=== PATIENT | male | born 1980 | race Hispanic/Latino ===

== ENCOUNTER 2021-02-28 11:55 | Outpatient (AMBR) | payer MEDICARE, MEDICAID, SELFPAY ==
--- NOTE | 2021-02-13 13:51 | PTNOTE_ITS ---
PT OP Initial Eval Patient Information Visit Reasons: post op right ankle Medical Diagnosis: S82.891D Treatment Dx #1: Right Ankle Mobility Deficits Treatment Dx #2: Abnormal Gait Start of Care: 02/13/21 Date of Onset: 01/01/21 Initial Assessment Subjective Pt is a 40 y/o male s/p right ankle ORIF and deltoid ligament reconstruction 01/01/21 after ankle injury. Pt still has a lot pain (7/10) with all activities and currently is non-weight bearing. Pt has limitation with walking, standing, chores, self care, balance, work duties, and performing recreational activities. Objective Right Ankle AROM PF to DF: -42 deg to -38 deg Inversion and Eversion: unable Right Ankle PROM PF to DF: -42 deg to 35 deg Inversion: 8 deg Eversion: 5 deg Right Ankle MMTs: trace Right Hip MMTs Glute Med: 3-/5 Glute Max: 3-/5 SLS: unable Assessment Pt demonstrate right ankle mobility and strength deficits s/p ankle surgery leading to decline function. Pt will benefit from physical therapy to increase ROM, strength, and work on ankle stability Short Term and Network Architect Goals 1) Increase right ankle AROM WFL in 12 wks to be able to ambulate without AD 2) Increase right ankle MMTs grossly to 3+/5 in 12 wks to be able to perform self care activities 3) Decrease ankle pain to 2/10 in 12 wks to be able to perform chores 4) Increase hip MMTs grossly to 3+/5 in 12 wks to be able to perform work duties 5) Increase SLS to 20 sec in 12 wks to be able to negotiate uneven surfaces 6) Indep with HEP Treatment Plan 1) Manual Therapy 2) Therapeutic Activities 3) Therapeutic Exercises 4) Modalities (ice, heat) 5) Balance Training 6) Gait Training Frequency and Duration 2 x wk for 12 wks Certification Dates: 02/13/21 to 05/15/21 Office Procedures PT Procedures PT Date of Service: 02/13/21 OP PT Eval Mod Complex 30 minutes: Yes
--- NOTE | 2021-02-17 14:41 | PTNOTE_ITS ---
PT Outpatient Daily Note Date of Service: 02/17/21 OP Daily Note Visit Reasons: post op right ankle Outpatient Physical Therapy Treatment Date: 02/17/21 Subjective: Jamel traore helps the swelling in his ankle. Pt notice more ankle ROM in the past days Objective: Please see flow chart for list of ther ex performed Assessment: tolerate exercises with minimal pain; improved ankle AROM in DF and PF after therapy session. post ice help decrease swelling in the ankle Plan: Continue with PT Length of Time (minutes) of Treatment: 30 Minutes Office Procedures PT Procedures PT Date of Service: 02/13/21 OP PT Eval Mod Complex 30 minutes: Yes PT Procedures PT Date of Service: 02/17/21 Therapeutic Exercise 15 minutes: Yes Manual Trouble Tracer 15 minutes: Yes
--- NOTE | 2021-02-20 13:40 | PT.ODAYNRPT ---
PT Outpatient Daily Note Date of Service: 02/20/21 OP Daily Note Visit Reasons: post op right ankle Outpatient Physical Therapy Treatment Date: 02/20/21 Subjective: Pt's ankle is feeling better and notice more movement, however, without his boot he notice more ankle swelling. Objective: Please see flow chart for list of ther ex performed Assessment: tolerate exercises with minimal pain; continues to improve with ankle ROM in all plane. decrease stiffness noted with all toes today Plan: Continue with PT Length of Time (minutes) of Treatment: 30 Minutes Office Procedures PT Procedures PT Date of Service: 02/13/21 OP PT Eval Mod Complex 30 minutes: Yes PT Procedures PT Date of Service: 02/17/21 Therapeutic Exercise 15 minutes: Yes Manual Senior Net Architect 15 minutes: Yes PT Procedures PT Date of Service: 02/20/21 Therapeutic Exercise 30 minutes: Yes
--- NOTE | 2021-02-26 14:32 | PT.ODAYNRPT ---
PT Outpatient Daily Note Date of Service: 02/26/21 OP Daily Note Visit Reasons: post op right ankle Outpatient Physical Therapy Treatment Date: 02/26/21 Subjective: Pt mention that his ankle still swells but it does move a lot better. Objective: Please see flow chart for list of ther ex performed Assessment: tolerate exercises with minimal pain Plan: Continue with PT Length of Time (minutes) of Treatment: 30 Minutes Office Procedures PT Procedures PT Date of Service: 02/13/21 OP PT Eval Mod Complex 30 minutes: Yes PT Procedures PT Date of Service: 02/26/21 Therapeutic Exercise 30 minutes: Yes PT Procedures PT Date of Service: 02/17/21 Therapeutic Exercise 15 minutes: Yes Manual Director Of Assisted Living 15 minutes: Yes PT Procedures PT Date of Service: 02/20/21 Therapeutic Exercise 30 minutes: Yes
--- NOTE | 2021-02-28 11:56 | PT.ODAYNRPT ---
PT Outpatient Daily Note Date of Service: 02/28/21 OP Daily Note Visit Reasons: post op right ankle Outpatient Physical Therapy Treatment Date: 02/28/21 Subjective: Pt mention that his ankle is better. Pt notice he's now able to move his toes pretty well Objective: Please see flow chart for list of ther ex performed Assessment: tolerate exercieses with minimal pain Plan: Continue with PT Length of Time (minutes) of Treatment: 30 Minutes Office Procedures PT Procedures PT Date of Service: 02/13/21 OP PT Eval Mod Complex 30 minutes: Yes PT Procedures PT Date of Service: 02/26/21 Therapeutic Exercise 30 minutes: Yes PT Procedures PT Date of Service: 02/17/21 Therapeutic Exercise 15 minutes: Yes Manual Reverberatory Furnace Operator 15 minutes: Yes PT Procedures PT Date of Service: 02/20/21 Therapeutic Exercise 30 minutes: Yes PT Procedures PT Date of Service: 02/28/21 Therapeutic Exercise 30 minutes: Yes
== END 2021-02-28 23:59 | disposition home or self-care (01) ==
PROVIDERS: PCP Orthopaedic Surgery; Referring Provider Orthopaedic Surgery; Visit Provider Orthopaedic Surgery
DX: S82.891D Other fracture of right lower leg, subsequent encounter for closed fracture with routine healing (principal); M25.561 Pain in right knee; R26.2 Difficulty in walking, not elsewhere classified; X58.XXXD Exposure to other specified factors, subsequent encounter
CPT/HCPCS: 97110; 97140; 97162

== ENCOUNTER 2021-03-27 10:25 | Outpatient (AMBR) | payer MEDICARE, MEDICAID, SELFPAY ==
--- NOTE | 2021-03-05 10:19 | PT.ODAYNRPT ---
PT Outpatient Daily Note Date of Service: 03/05/21 OP Daily Note Visit Reasons: post op right ankle Outpatient Physical Therapy Treatment Date: 03/05/21 Subjective: Pt's ankle is better. Pt stated that he still has good and bad days. Pt notice some swelling in his ankle on days that he is moving around a lot more Objective: Please see flow chart for list of ther ex performed Assessment: tolerate exercises with minimal pain Plan: Continue with PT Length of Time (minutes) of Treatment: 30 Minutes Office Procedures PT Procedures PT Date of Service: 03/05/21 Therapeutic Exercise 30 minutes: Yes
--- NOTE | 2021-03-07 14:35 | PT.ODAYNRPT ---
PT Outpatient Daily Note Date of Service: 03/07/21 OP Daily Note Visit Reasons: post op right ankle Outpatient Physical Therapy Treatment Date: 03/07/21 Subjective: Pt mention that his ankle is better. Pt notice less pain and swelling. Pt also stated that stiffness is less Objective: Please see flow chart for list of ther ex performed Assessment: tolerate exercises with minimal pain; improved big toe ROM Plan: Continue with PT Length of Time (minutes) of Treatment: 30 Minutes Office Procedures PT Procedures PT Date of Service: 03/07/21 Therapeutic Exercise 30 minutes: Yes PT Procedures PT Date of Service: 03/05/21 Therapeutic Exercise 30 minutes: Yes
--- NOTE | 2021-03-11 09:16 | PT.ODS1RPT ---
PT OP Progress/Discharge Note Date of Service: 03/11/21 Progress Note/DC Note Progress Note/Discharge Note: Progress Note Patient Information Visit Reasons: post op right ankle Medical Diagnosis: S82.891 Treatment Dx #1: Right Ankle Mobility Deficits Treatment Dx #2: Right Ankle Weakness Service Continue Service or Discharge: Continue Service Certification Date Certification Dates: 03/11/21 to 06/11/21 Status Subjective: Pt mention that his ankle swells intermittently. It's based on how much activities and movement is done for the day. Pt still has limitation with prolonged standing and walking due to weightbearing restriction. Pt notice that he can now shower, perform light chores, and self care with less limitation. Pt will be seeing his surgeon in a few weeks and wants to return back to work. Objective: Right Ankle AROM DF: 10 deg PF: 40 deg Inversion: 10 deg Eversion: 5 deg Right Ankle MMTs: grossly 2-/5 Right Hip MMTs Glute Med: 3-/5 Glute Max: 3-/5 SLS: unable Assessment: Pt demonstrate improvement with ankle ROM and strength allowing him to start light ADLs, chores, and self care activities with less limitation. Pt's slow progress with functional tasks and mobility relates to weightbearing restriction and continuation use of the cam boot. Pt has not met set goals yet and will continue to benefit from physical therapy to increase ROM, strength, and overall ankle stability; thank you for your referrals. Plan: Continue with PT/POC Office Procedures PT Procedures PT Date of Service: 03/07/21 Therapeutic Exercise 30 minutes: Yes PT Procedures PT Date of Service: 03/05/21 Therapeutic Exercise 30 minutes: Yes PT Procedures PT Date of Service: 03/11/21 Therapeutic Exercise 30 minutes: Yes
--- NOTE | 2021-03-13 09:47 | PT.ODAYNRPT ---
PT Outpatient Daily Note Date of Service: 03/13/21 OP Daily Note Visit Reasons: post op right ankle Outpatient Physical Therapy Treatment Date: 03/13/21 Subjective: Pt's ankle feels better. Pt wants to go swimming but he cant Objective: Please see flow chart for list of ther ex performed Assessment: tolerate exercises with minimal pain Plan: Continue with PT Length of Time (minutes) of Treatment: 30 Minutes Office Procedures PT Procedures PT Date of Service: 03/07/21 Therapeutic Exercise 30 minutes: Yes PT Procedures PT Date of Service: 03/05/21 Therapeutic Exercise 30 minutes: Yes PT Procedures PT Date of Service: 03/11/21 Therapeutic Exercise 30 minutes: Yes PT Procedures PT Date of Service: 03/13/21 Therapeutic Exercise 30 minutes: Yes
--- NOTE | 2021-03-17 12:57 | PT.ODAYNRPT ---
PT Outpatient Daily Note Date of Service: 03/17/21 OP Daily Note Visit Reasons: post op right ankle Outpatient Physical Therapy Treatment Date: 03/17/21 Subjective: Pt mention that his ankle is much better. Pt notice less pain and swelling lately Objective: Please see flow chart for list of ther ex performed Assessment: tolerate exercises with minimal pain Plan: Continue with PT Length of Time (minutes) of Treatment: 30 Minutes Office Procedures PT Procedures PT Date of Service: 03/07/21 Therapeutic Exercise 30 minutes: Yes PT Procedures PT Date of Service: 03/17/21 Therapeutic Exercise 30 minutes: Yes PT Procedures PT Date of Service: 03/05/21 Therapeutic Exercise 30 minutes: Yes PT Procedures PT Date of Service: 03/11/21 Therapeutic Exercise 30 minutes: Yes PT Procedures PT Date of Service: 03/13/21 Therapeutic Exercise 30 minutes: Yes
--- NOTE | 2021-03-19 11:35 | PT.ODAYNRPT ---
PT Outpatient Daily Note Date of Service: 03/19/21 OP Daily Note Visit Reasons: post op right ankle Outpatient Physical Therapy Treatment Date: 03/19/21 Subjective: Pt mention that ankle is better but is concern about returning back to work because he hasnt' bear weight yet Objective: Please see flow chart for list of ther ex performed Assessment: tolerate exercises with minimal pain Plan: Continue with PT Length of Time (minutes) of Treatment: 30 Minutes Office Procedures PT Procedures PT Date of Service: 03/07/21 Therapeutic Exercise 30 minutes: Yes PT Procedures PT Date of Service: 03/17/21 Therapeutic Exercise 30 minutes: Yes PT Procedures PT Date of Service: 03/19/21 Therapeutic Exercise 30 minutes: Yes PT Procedures PT Date of Service: 03/05/21 Therapeutic Exercise 30 minutes: Yes PT Procedures PT Date of Service: 03/11/21 Therapeutic Exercise 30 minutes: Yes PT Procedures PT Date of Service: 03/13/21 Therapeutic Exercise 30 minutes: Yes
--- NOTE | 2021-03-25 11:03 | PT.ODAYNRPT ---
PT Outpatient Daily Note Date of Service: 03/25/21 OP Daily Note Visit Reasons: post op right ankle Outpatient Physical Therapy Treatment Date: 03/25/21 Subjective: Pt mention that his ankle is better. Pt will call MD today when he can return back to work or if he's going to continue short term disability Objective: Please see flow chart for list of ther ex performed Assessment: tolerate exercises with minimal pain Plan: Continue with PT Length of Time (minutes) of Treatment: 30 Minutes Office Procedures PT Procedures PT Date of Service: 03/07/21 Therapeutic Exercise 30 minutes: Yes PT Procedures PT Date of Service: 03/17/21 Therapeutic Exercise 30 minutes: Yes PT Procedures PT Date of Service: 03/19/21 Therapeutic Exercise 30 minutes: Yes PT Procedures PT Date of Service: 03/25/21 Therapeutic Exercise 30 minutes: Yes PT Procedures PT Date of Service: 03/05/21 Therapeutic Exercise 30 minutes: Yes PT Procedures PT Date of Service: 03/11/21 Therapeutic Exercise 30 minutes: Yes PT Procedures PT Date of Service: 03/13/21 Therapeutic Exercise 30 minutes: Yes
--- NOTE | 2021-03-27 11:20 | PT.ODAYNRPT ---
PT Outpatient Daily Note Date of Service: 03/27/21 OP Daily Note Visit Reasons: post op right ankle Outpatient Physical Therapy Treatment Date: 03/27/21 Subjective: Pt mention that his ankle is better. He called the surgeon's office and moved his appt to April 03. Objective: Please see flow chart for list of ther ex performed Assessment: tolerate exercises with minimal pain Plan: Continue with PT Length of Time (minutes) of Treatment: 30 Minutes Office Procedures PT Procedures PT Date of Service: 03/07/21 Therapeutic Exercise 30 minutes: Yes PT Procedures PT Date of Service: 03/17/21 Therapeutic Exercise 30 minutes: Yes PT Procedures PT Date of Service: 03/19/21 Therapeutic Exercise 30 minutes: Yes PT Procedures PT Date of Service: 03/25/21 Therapeutic Exercise 30 minutes: Yes PT Procedures PT Date of Service: 03/27/21 Therapeutic Exercise 30 minutes: Yes PT Procedures PT Date of Service: 03/05/21 Therapeutic Exercise 30 minutes: Yes PT Procedures PT Date of Service: 03/11/21 Therapeutic Exercise 30 minutes: Yes PT Procedures PT Date of Service: 03/13/21 Therapeutic Exercise 30 minutes: Yes
== END 2021-03-31 23:59 | disposition home or self-care (01) ==
PROVIDERS: PCP Orthopaedic Surgery; Referring Provider Orthopaedic Surgery; Visit Provider Orthopaedic Surgery
DX: S82.891D Other fracture of right lower leg, subsequent encounter for closed fracture with routine healing (principal); M25.571 Pain in right ankle and joints of right foot; R26.2 Difficulty in walking, not elsewhere classified; X58.XXXD Exposure to other specified factors, subsequent encounter
CPT/HCPCS: 97110

== ENCOUNTER 2021-04-15 10:55 | Outpatient (AMBR) | payer MEDICARE, MEDICAID, SELFPAY ==
--- NOTE | 2021-04-04 10:17 | PT.ODAYNRPT ---
PT Outpatient Daily Note Date of Service: 04/04/21 OP Daily Note Visit Reasons: post op right ankle Outpatient Physical Therapy Treatment Date: 04/04/21 Subjective: Pt's ankle better but recently saw surgeon and will like to take out the 2 longer screw and put in 2 smaller one. Pt is pending surgery. Objective: Please see flow chart for list of ther ex performed Assessment: tolerate exercises with minimal pain; unable to progress to standing exercises due to current weightbearing status (NWB) Plan: Continue with PT Length of Time (minutes) of Treatment: 30 Minutes Office Procedures PT Procedures PT Date of Service: 04/04/21 Therapeutic Exercise 30 minutes: Yes
--- NOTE | 2021-04-08 09:07 | PT.ODAYNRPT ---
PT Outpatient Daily Note Date of Service: 04/08/21 OP Daily Note Visit Reasons: post op right ankle Outpatient Physical Therapy Treatment Date: 04/08/21 Subjective: Pt's ankle feels sensitive and better. Pt is frustrated that he can't put weight on it. At this time he still not sure when his surgery is Objective: Please see flow chart for list of ther ex performed Assessment: tolerate exercises with minimal pain Plan: Continue with PT Length of Time (minutes) of Treatment: 30 Minutes Office Procedures PT Procedures PT Date of Service: 04/04/21 Therapeutic Exercise 30 minutes: Yes PT Procedures PT Date of Service: 04/08/21 Therapeutic Exercise 30 minutes: Yes
--- NOTE | 2021-04-15 11:38 | PT.ODS1RPT ---
PT OP Progress/Discharge Note Date of Service: 04/15/21 Progress Note/DC Note Progress Note/Discharge Note: DC Note Patient Information Visit Reasons: post op right ankle Medical Diagnosis: S82.891 Treatment Dx #1: Right Ankle Mobility Deficits Treatment Dx #2: Right Ankle Weakness Service Continue Service or Discharge: Discharge Discharge Date: 04/15/21 Status Subjective: Pt will be having his two larger screws removed this wednesday. Pt still hasn't been able to walk, stand, and perform his chores due to non-weight bearing restriction. Pt stated that surgeon will be allowing him to walk after wednesday. At this time Pt feels comfortable being release from care with exercises to continue at home. Objective: Right Ankle AROM DF: 10 deg PF: 40 deg Inversion: 15 deg Eversion: 10 deg Right Ankle MMTs: grossly 3+/5 Right Hip MMTs: grossly 3/5 Assessment: At this time Pt will be d/c from care due to surgical intervention this wednesday and change in medical status. Pt's been slow on progress with ankle ROM and strength due to non-weight bearing restriction since ankle surgery. Pt partially met set goals in therapy. Please refer patient to physical therapy after surgery if indicated, thank you for your referrals. Plan: D/C home with HEP and follow up with MD Office Procedures PT Procedures PT Date of Service: 04/04/21 Therapeutic Exercise 30 minutes: Yes PT Procedures PT Date of Service: 04/15/21 Therapeutic Exercise 30 minutes: Yes PT Procedures PT Date of Service: 04/08/21 Therapeutic Exercise 30 minutes: Yes
== END 2021-04-30 23:59 | disposition home or self-care (01) ==
PROVIDERS: PCP Orthopaedic Surgery; Referring Provider Orthopaedic Surgery; Visit Provider Orthopaedic Surgery
DX: S82.891D Other fracture of right lower leg, subsequent encounter for closed fracture with routine healing (principal); M25.571 Pain in right ankle and joints of right foot; R26.2 Difficulty in walking, not elsewhere classified; X58.XXXD Exposure to other specified factors, subsequent encounter
CPT/HCPCS: 97110